=== PATIENT | male | born 1995 | race Caucasian/White ===

== ENCOUNTER 2016-04-01 00:32 | Emergency (ER) | payer OTHER ==
[~2016-04-01] VITALS: Ht 193 cm; Wt 94.0 kg
[2016-04-01 00:34] VITALS: BP 137/77; PULSE 101; RESP 16; TEMP 98.1; O2SAT 99
== END 2016-04-01 02:00 | disposition left against medical advice (07) ==
LOC: NEPB 00:32
DX: R68.89 Other general symptoms and signs (principal)
CPT/HCPCS: 99281

== ENCOUNTER 2016-04-30 07:42 | Emergency (ER) | payer SELFPAY ==
[~2016-04-30] VITALS: Ht 193 cm; Wt 95.0 kg
[2016-04-30 07:44] VITALS: BP 123/74; PULSE 71; RESP 15; TEMP 98; O2SAT 99
[2016-04-30] MEDS ORDERED: PERM5CRE TOPICAL (08:07)
[2016-04-30] MEDS ORDERED: BENA25TA3 PO (08:07)
--- NOTE | 2016-04-30 08:09 | PD ---
HPI Chief Complaint: Skin Problem Time Seen by Provider: 08:08 Travel History International Travel<30 days: No Contact w/Intl Traveler<30days: No Traveled to known affect area: No History of Present Illness HPI 21-year-old male presents to the emergency department for evaluation of pruritic rash for 2 weeks. Patient states that the rash initially began on his genitals and groin and has now moved to his lower abdomen. He denies any fever , chills, nausea, vomiting, cough or cold symptoms, redness, penile discharge or drainage, changes in soaps or detergents. States he has been taking hot showers to try to help with the itching. States that his roommate also has the same rash. No other complaints. PFSH Past Medical History Autoimmune Disease: No Cardiovascular Problems: No Diminished Hearing: No Genitourinary: No Musculoskeletal: No Neurologic: No Psychiatric: No Respiratory: No Immunizations Current: Yes (UP TO DATE FOR AGE) Past Surgical History Other Surgery: No Social History Alcohol Use: Yes Tobacco Use: Yes (1PPD) Substance Use: No Allergies-Medications (Allergen,Severity, Reaction): Coded Allergies: No Known Allergies (Unverified , 04/30/16) Reported Meds & Prescriptions Reported Meds & Active Scripts Active Benadryl Allergy (Diphenhydramine HCl) 25 Mg Tab 25 Mg PO Q6H PRN 7 Days Permethrin Topical (Permethrin) 5% Cream 1 Applic TOPICAL ONCE Review of Systems Except as stated in HPI: all other systems reviewed are Neg Physical Exam Narrative GENERAL: Well-nourished and well-developed pleasant patient in no acute distress who is nontoxic appearing. SKIN: Warm and dry. HEAD: Normocephalic and atraumatic. EYES: No injection, drainage, or hyphema noted. PERRLA. EOMI. ENT: No nasal drainage noted. Oropharynx is clear. NECK: Supple and the trachea is midline. CARDIOVASCULAR: Regular rate and rhythm. RESPIRATORY: Breath sounds are equal bilaterally with no accessory muscle use, wheezing, rhonchi, or crackles. GENITOURINARY: Circumcised. Testes descended bilaterally without evidence of rotation. There are linear erythematous papules on penile shaft and scattered throughout pelvic region extending to lower abdomen. No urethral discharge. Performed in the presence of Jeny RN. NEUROLOGICAL: Awake, alert, and oriented. Normal speech and gait. Cranial nerves are grossly intact. Data Data Last Documented VS Vital Signs Date Time Temp Pulse Resp B/P Pulse Ox O2 Delivery O2 Flow Rate FiO2 04/30/16 07:44 98.0 71 15 123/74 99 MDM Medical Decision Making Medical Screen Exam Complete: Yes Emergency Medical Condition: Yes Differential Diagnosis Scabies versus allergic reaction versus bedbugs versus other Narrative Course 21-year-old male presents to the emergency department for evaluation of pruritic rash on groin and lower abdomen. Patient is afebrile, vital signs are stable. This is characteristic of scabies. Patient will be treated with permethrin cream. Discussed supportive care and eradication of scabies. Patient verbalizes understanding and agreement with treatment plan. Diagnosis Primary Impression: Scabies Referrals: Primary Care Physician Patient Instructions: General Instructions, Scabies (ED) Additional Instructions: Use cream as prescribed. Follow-up with your Primary Care Physician. Return to the ED for any acute worsening of symptoms. Med/Other Pt SpecificInfo: Prescription(s) given Scripts Diphenhydramine (Benadryl Allergy)25 Mg Tab25 Mg PO Q6H PRN (ITCHING) 7 Days Ref 0 Prov:Negrita Yu MD 04/30/16 Permethrin Topical 5% Cream1 Applic TOPICAL ONCE #1 TUBE Ref 1 Prov:Negrita Yu MD 04/30/16 Disposition: 01 DISCHARGE HOME Condition: Stable Violetta Campbell Apr 30, 2016 08:09
== END 2016-04-30 08:28 | disposition home or self-care (01) ==
LOC: NEPB 07:42
DX: B86 Scabies (principal); F17.200 Nicotine dependence, unspecified, uncomplicated
CPT/HCPCS: 99282

== ENCOUNTER 2017-08-25 00:36 | Inpatient (IN) | payer SELFPAY ==
[~2017-08-25] VITALS: Ht 190.5 cm; Wt 105.7 kg
[2017-08-25] VITALS (15 sets, daily range): BP systolic 113–148; BP diastolic 57–89; PULSE 66–100; RESP 16–22; TEMP 98–98.6; O2SAT 94–100
[~2017-08-25 00:36] MED LIST: BENA25TA3 PO; PERM5CRE TOPICAL
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
[2017-08-25] MEDS ORDERED: SODIUM CHLOR 0.9% 1000 ML INJ 1,000 ML IV ONE (00:45)
[2017-08-25] MEDS ORDERED: SODIUM CHLORIDE 0.9% FLUSH 10 ML FLUSH IV FLUSH PRN ×2 (00:45→07:00)
[2017-08-25] MEDS ORDERED: TETANUS/DIPHTHERIA TOXOID ADULT 0.5 ML VIAL IM ONE (00:45)
[2017-08-25 00:56] LABS: AUTOMATED NEUTROPHIL # 5.7 TH/MM3 (1.8-7.7); BASOPHIL # 0.1 TH/MM3 (0-0.2); BASOPHIL % 0.6 % (0.0-2.0); EOSINOPHIL # 0.2 TH/MM3 (0-0.4); HEMATOCRIT 45.1 % (39.0-51.0); HEMOGLOBIN 15.7 GM/DL (13.0-17.0); LYMPH % 26.8 % (9.0-44.0); LYMPHOCYTE # 2.4 TH/MM3 (1.0-4.8); MEAN CELL VOLUME 88.6 FL (80.0-100.0); MEAN CORPUSCULAR HEMOGLOBIN 30.9 PG (27.0-34.0); MEAN CORPUSCULAR HGB CONC 34.9 % (32.0-36.0); MONO % 5.9 % (0.0-8.0); MONOCYTE # 0.5 TH/MM3 (0-0.9); NEUT % 64.7 % (16.0-70.0); PLATELET COUNT 303 TH/MM3 (150-450); RED CELL DISTRIBUTION WIDTH 12.5 % (11.6-17.2); WHITE BLOOD COUNT 8.8 TH/MM3 (4.0-11.0)
[2017-08-25 01:07] LABS: PROTHROMBIN TIME - PATIENT 10.1 SEC (9.8-11.6)
[2017-08-25 01:12] LABS: BICARBONATE 24.1 MEQ/L (21.0-32.0); CREATININE 0.84 MG/DL (0.60-1.30)
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
[2017-08-25] MEDS ORDERED: SODIUM CHLOR 0.9% 1000 ML INJ 1,000 ML IV SCH (06:58)
[2017-08-25] MEDS ORDERED: CHLORHEXIDINE GLUCONATE 2 % 1 PACK (2 CLOTHS) TOP PRN (07:00)
[2017-08-25] MEDS ORDERED: ONDANSETRON ODT 4 MG TAB PO PRN (07:00)
[2017-08-25] MEDS ORDERED: ENALAPRILAT 1.25 MG/ML VIAL IV PUSH PRN (07:00)
[2017-08-25] MEDS ORDERED: PANTOPRAZOLE SODIUM 40 MG VIAL IVP SCH (07:00)
[2017-08-25] MEDS ORDERED: NURSING INFORMATION XX SCH (07:00)
[2017-08-25] MEDS ORDERED: MORPHINE SULFATE 2 MG/ML SYRINGE IM PRN (07:15)
[2017-08-25] MEDS ORDERED: FLUMAZENIL 0.5 MG/5 ML VIAL IV PUSH PRN (07:15)
[2017-08-25] MEDS ORDERED: LORazepam 1 MG TAB PO PRN (07:15)
[2017-08-25] MEDS ORDERED: LORazepam 2 MG/ML VIAL IV PUSH PRN ×4 (07:15)
[2017-08-25] MEDS ORDERED: LORazepam 2 MG TAB PO PRN (07:15)
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
[2017-08-25] MEDS: levETIRAcetam INJ 500 MG in SODIUM CHLORIDE 0.9% INJ 100 ML IV SCH ×2 (08:31→21:00)
[2017-08-25] MEDS: DOCUSATE SODIUM 100 MG CAP PO SCH ×2 (08:32→21:00)
[2017-08-25] MEDS: BACITRACIN TOP OINT 15 GM TUBE TOP SCH ×2 (08:32→21:00)
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
[2017-08-25] MEDS ORDERED: chlordiazePOXIDE 25 MG CAP PO PRN (09:00)
[2017-08-25] MEDS: MORPHINE SULFATE 4 MG/ML INJ IV PRN ×4 (09:13→21:15)
[2017-08-25] MEDS ORDERED: ACETAMINOPHEN 325 MG TAB PO PRN (10:00)
[2017-08-25] MEDS ORDERED: MULTIVITAMIN INJ 10 ML, THIAMINE INJ 100 MG, FOLIC ACID INJ 1 MG in SODIUM CHLORID 0.9%... IV SCH (11:00)
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
[2017-08-25] MEDS ORDERED: IOHEXOL 350 MG/ML 10 ML VIAL (for RAD DIAG) IVCONTRAST ONE (14:44)
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
[2017-08-26] VITALS: BP 118/58; PULSE 52; RESP 24; TEMP 98.4; O2SAT 98
[2017-08-26 02:00] VITALS: PULSE 56
[2017-08-26 04:00] VITALS: BP 105/56; PULSE 52; RESP 15; TEMP 98.2; O2SAT 97
[2017-08-26] MEDS ORDERED: CHLORHEXIDINE GLUCONATE 2 % 1 PACK (2 CLOTHS) TOP SCH (04:00)
[2017-08-26 04:05] LABS: AUTOMATED NEUTROPHIL # 4.3 TH/MM3 (1.8-7.7); BASOPHIL # 0.1 TH/MM3 (0-0.2); BASOPHIL % 0.7 % (0.0-2.0); EOSINOPHIL # 0.3 TH/MM3 (0-0.4); EOSINOPHIL % 3.6 % (0.0-4.0); HEMATOCRIT 45.2 % (39.0-51.0); HEMOGLOBIN 15.8 GM/DL (13.0-17.0); LYMPHOCYTE # 2.4 TH/MM3 (1.0-4.8); MEAN CELL VOLUME 88.7 FL (80.0-100.0); MEAN PLATELET VOLUME 8.7 FL (7.0-11.0); MONO % 10.7 % (0.0-8.0); MONOCYTE # 0.8 TH/MM3 (0-0.9); PLATELET COUNT 271 TH/MM3 (150-450); RED CELL DISTRIBUTION WIDTH 12.4 % (11.6-17.2); WHITE BLOOD COUNT 7.9 TH/MM3 (4.0-11.0)
[2017-08-26 04:19] LABS: ALKALINE PHOSPHATASE 72 U/L (45-117); TOTAL BILIRUBIN ADULT 1.3 MG/DL (0.2-1.0); TOTAL PROTEIN 7.1 GM/DL (6.4-8.2)
[2017-08-26 04:20] LABS: ALBUMIN 3.5 GM/DL (3.4-5.0); ALT (GPT) 25 U/L (12-78); AST (GOT) 23 U/L (15-37); BICARBONATE 28.4 MEQ/L (21.0-32.0); BLOOD UREA NITROGEN 7 MG/DL (7-18); CALCIUM 8.6 MG/DL (8.5-10.1); CHLORIDE 105 MEQ/L (98-107); CREATININE 0.78 MG/DL (0.60-1.30); GLOMERULAR FILTRATION RATE 126 ML/MIN (>89); GLUCOSE,RANDOM 85 MG/DL (74-106); SODIUM (NA) 141 MEQ/L (136-145)
[2017-08-26 06:00] VITALS: PULSE 52
[2017-08-26] MEDS ORDERED: oxyCODONE/ACETAMINOPHEN 5 MG/325 MG TAB PO PRN (06:15)
[2017-08-26] MEDS ORDERED: oxyCODONE/ACETAMINOPHEN 10 MG/325 MG TAB PO PRN (06:15)
[2017-08-26 08:00] VITALS: BP 105/56; PULSE 52; PULSE 53; RESP 15; TEMP 98; O2SAT 97
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
[2017-08-26] MEDS ORDERED: levETIRAcetam 500 MG TAB PO SCH (09:00)
[2017-08-26] MEDS ORDERED: DOCUSATE SODIUM 50 MG/SENNA 8.6 MG TAB PO SCH (09:00)
[2017-08-26] MEDS ORDERED: FAMOTIDINE 20 MG TAB PO SCH (09:00)
[2017-08-26] MEDS: BACITRACIN TOP OINT 15 GM TUBE TOP SCH (09:00)
[2017-08-26] MEDS ORDERED: TYLE325T PO (09:56)
[2017-08-26 10:00] VITALS: PULSE 58
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
== END 2017-08-26 11:43 | disposition home or self-care (01) | DRG 84 ==
LOC: NEPC 00:36 → NEDA 01:55 → N03A 03:56
PROVIDERS: ADMIT Surgery; ATTEND Surgery
PROC: 0HQ0XZZ Repair Scalp Skin, External Approach (ICD-10-PCS; principal; 2017-08-25)
DX: S06.6X9A Traumatic subarachnoid hemorrhage with loss of consciousness of unspecified duration, initial encounter (principal); F10.920 Alcohol use, unspecified with intoxication, uncomplicated; F17.200 Nicotine dependence, unspecified, uncomplicated; S01.01XA Laceration without foreign body of scalp, initial encounter; R40.2413 Glasgow coma scale score 13-15, at hospital admission; Y08.89XA Assault by other specified means, initial encounter; Y90.7 Blood alcohol level of 200-239 mg/100 ml
CPT/HCPCS: 70450; 70486; 70496; 70498; 71045; 72125; 80048; 80053; 80307; 85025; 85610; 85730; 87641; 90714; 94150; C9113; J1953; J2270; J3411; J7030; J7040; Q9967

== ENCOUNTER 2017-09-08 13:02 | Emergency (ER) | payer SELFPAY ==
[~2017-09-08] VITALS: Ht 193 cm; Wt 100.0 kg
[~2017-09-08 13:02] MED LIST changes: -BENA25TA3 PO; -PERM5CRE TOPICAL; +TYLE325T PO
[2017-09-08 13:43] VITALS: BP 134/74; PULSE 66; RESP 17; TEMP 98; O2SAT 98
--- NOTE | 2017-09-08 13:52 | PD ---
HPI Chief Complaint: Wound/Suture/Staple Re-Check Time Seen by Provider: 13:51 Travel History International Travel<30 days: No Contact w/Intl Traveler<30days: No Traveled to known affect area: No History of Present Illness HPI 22-year-old male presents to emergency department requesting kathrin to be removed from his left scalp that has been there for 12 days. Denies redness, drainage, pain to the area. Denies fever, vomiting. Symptoms are mild in severity. No known aggravating or relieving factors. No known allergies. Has no other medical complaints. No other modifying factors or associated signs and symptoms. PFSH Past Medical History Autoimmune Disease: No Cardiovascular Problems: No Diminished Hearing: No Genitourinary: No Musculoskeletal: No Neurologic: No Psychiatric: No Respiratory: No Immunizations Current: Yes (UP TO DATE FOR AGE) Past Surgical History Other Surgery: No Social History Alcohol Use: Yes (18 beers/day) Tobacco Use: Yes (1 1/2 to 2 PPD) Substance Use: Yes (Marijuana) Allergies-Medications (Allergen,Severity, Reaction): Coded Allergies: No Known Allergies (Unverified Allergy, Unknown, 08/25/17) Reported Meds & Prescriptions Reported Meds & Active Scripts Active Tylenol (Acetaminophen) 325 Mg Tab 650 Mg PO Q4H PRN Review of Systems Except as stated in HPI: all other systems reviewed are Neg Physical Exam Narrative GENERAL: Well-nourished, well-developed black male patient, in no acute distress SKIN: Warm and dry. Left lateral mid scalp with wound that is well approximated and kathrin intact; without erythema, edema, drainage. No signs of infection. HEAD: Atraumatic. Normocephalic. EYES: Pupils equal and round. No scleral icterus. No injection or drainage. ENT: Mucosa pink and moist. Airway patent. NECK: Trachea midline. CARDIOVASCULAR: Regular rate. RESPIRATORY: No accessory muscle use. GASTROINTESTINAL: Flat. MUSCULOSKELETAL: No obvious deformities. No clubbing. No cyanosis. No edema. NEUROLOGICAL: Awake and alert. Oriented 3. No obvious cranial nerve deficits. Motor grossly within normal limits. Normal speech. PSYCHIATRIC: Appropriate mood and affect; insight and judgment normal. Data Data Last Documented VS Vital Signs Date Time Temp Pulse Resp B/P (MAP) Pulse Ox O2 Delivery O2 Flow Rate FiO2 09/08/17 13:43 98.0 66 17 134/74 (94) 98 Orders Orders Ed Discharge Order (09/08/17 13:52) MDM Medical Decision Making Medical Screen Exam Complete: Yes Emergency Medical Condition: Yes Medical Record Reviewed: Yes Differential Diagnosis Encounter for staple removal, wound recheck, medical clearance Narrative Course 22-year-old male presents for staple removal of laceration to his left scalp. No signs of infection. Wound is well approximated. Kathrin removed. Patient tolerated well. Instructed patient to follow up with primary care provider. Patient verbalizes understanding and agreement with treatment plan. Patient is medically cleared and stable for discharge. Discussed reasons to return to the emergency department. Patient agrees with treatment plan. The patients vital signs are stable and the patient is stable for outpatient follow-up and treatment. Patient discharged home, stable and in no acute distress. Diagnosis Primary Impression: Encounter for staple removal Referrals: [facility] Primary Care Physician Patient Instructions: General Instructions Additional Instructions: Keep area clean and dry Follow-up with primary care provider Return to the emergency department immediately with worsening of symptoms Med/Other Pt SpecificInfo: No Change to Meds, No Meds Exist/No RX given Disposition: 01 DISCHARGE HOME Condition: Stable Violetta Tan Sep 08, 2017 13:52
== END 2017-09-08 14:59 | disposition home or self-care (01) ==
LOC: NEPK 13:02
DX: S01.01XD Laceration without foreign body of scalp, subsequent encounter (principal); X58.XXXD Exposure to other specified factors, subsequent encounter; Z48.02 Encounter for removal of sutures
CPT/HCPCS: 99281